=== PATIENT | male | born 1990 | race Two or more races ===

== ENCOUNTER 2024-01-30 14:49 | Outpatient (RCR) | payer MEDICAID, SELFPAY | END 2024-02-18 23:59 | disposition home or self-care (01) | LOC: SCTC 14:49 | PROVIDERS: PCP Family Medicine; Referring Provider Family Medicine; Visit Provider Nurse Practitioner Family | DX: D47.1 Chronic myeloproliferative disease (principal) | CPT/HCPCS: 99212; G0463 ==

== ENCOUNTER → 2024-04-03 | Outpatient (CLI) | payer MEDICAID, SELFPAY ==
--- NOTE | 2024-04-03 08:00 | XR_ITS ---
Examination: MRI pelvis with intravenous contrast TECHNIQUE: Axial sagittal coronal MR pelvis images post intravenous administration 18 cc gadolinium INDICATIONS: Rectal pain with rectal bleeding 7 months Exam date and time: April 03, 2024 0815 hours FINDINGS: Nonobstructive bowel gas pattern No common iliac and external iliac or common femoral lymphadenopathy No dilatation of the rectosigmoid visualized: No discrete colonic mass identified The rectal wall is thickened up to 11 mm No prostatomegaly Urinary bladder intact Homogeneous marrow signal IMPRESSION: Diffuse thickening of the rectal wall, differential would include proctitis, rectal tumor not excluded Recommend direct inspection
== END | disposition home or self-care (01) ==
LOC: SMRI 07:38
PROVIDERS: PCP Nurse Practitioner; Referring Provider Internal Medicine Gastroenterology; Visit Provider Internal Medicine Gastroenterology
DX: R93.3 Abnormal findings on diagnostic imaging of other parts of digestive tract (principal)
CPT/HCPCS: 72196; A9579

== ENCOUNTER 2024-04-09 07:50 | Day surgery (SDC) | payer MEDICAID, SELFPAY ==
[2024-04-08 15:41] VITALS: BMI 25.6
[2024-04-09] VITALS (10 sets, daily range): BP systolic 110–135; BP diastolic 70–87; PULSE 54–67; RESP 12–20; TEMP 36.7; O2SAT 96–99; BMI 22.6
[2024-04-09] MEDS: SODIUM CHLORIDE 0.9% 500 ML 500 ML 20 ML IV (09:10)
[2024-04-09] MEDS: MIDAZOLAM INJ 1 MG/ML VIAL 2 ML (ASD USE ONLY) 2 MG IV (09:16)
[2024-04-09] MEDS: fentaNYL CIT INJ 50 mCg/ML AMP 2ML (ASD USE ONLY) IV (09:16)
[2024-04-09] MEDS: DiphenhydrAMINE INJ 50 MG/ML VIAL 25 MG IV (09:17)
--- NOTE | 2024-04-09 09:40 | SUR.PHASEII ---
PATEINT INTO RECOVERY WITH NO ACUTE DISTRESS NOTED, V/S STABLE, NO COMPLAINTS OF PAIN OR NAUSEA AT THIS TIME. PATIENT REPOSITIONS SELF FOR COMFORT. PATIENT PASSING FLATUS. REPORT RECEIVED FROM LUIS ANTONIO FUCHS.
== END 2024-04-09 10:30 | disposition home or self-care (01) ==
PROVIDERS: PCP Family Medicine; Referring Provider Internal Medicine Gastroenterology; Visit Provider Internal Medicine Gastroenterology
PROC: 0DBE8ZX Excision of Large Intestine, Via Natural or Artificial Opening Endoscopic, Diagnostic (ICD-10-PCS; CPT 45380; principal; 2024-04-09 09:30)
DX: K64.1 Second degree hemorrhoids (principal); K62.89 Other specified diseases of anus and rectum
CPT/HCPCS: 45380; A4649; J1200; J2250; J3010; J7040

== ENCOUNTER 2024-07-06 15:46 | Outpatient (RCR) | payer MEDICAID, SELFPAY ==
--- NOTE | 2024-07-14 09:20 | CTCFLWUP_ITS ---
Patient: SAM GARCIA : 1990 Page 10 of 11 FOLLOW UP NOTE DATE OF SERVICE: 07/06/2024 NAME: SAM GARCIA ACCOUNT: [id number] : 1990 AGE: 34 INTERVAL HISTORY: Patient with eosinophilia with FLIPIL1-PDGFRA gene rearrangement . patient on imatinib and doing well . PREVIOUS NOTE: Sam Garcia is a 34-year-old ENG speaking male without any significant past medical history has been having nasal changes as well as scabs on the back of his calves as well as weight loss since September 2019. He was initially found to have his renal failure in November 2019. 12/08/2019: WBC 38.4, absolute eosinophil count 18,700 cells per deciliter, hemoglobin 10.8, MCV 95, platelets 158,000. 03/01/2020: WBC 34.9, absolute eosinophil count 16,500 cells per deciliter hemoglobin 10.9, platelet count 130,000. 06/13/2020: WBC 33.9, absolute eosinophil count 16,600 cells per deciliter, hemoglobin 9.8, platelets 104,000. 06/13/2020: Bone marrow biopsy and aspiration? 08/04/2020: WBC 84.7, absolute eosinophil count 22.4, absolute neutrophil count 39.6, hemoglobin 9.4, MCV 100, platelets 96,000. 08/10/2020: WBC 62.1, absolute eosinophil count is 19.1, hemoglobin is 9.9, platelets or 81,000. 08/12/2020: Patient started taking imatinib 100 mg p.o. daily. 08/17/2020: WBC 4.1, eosinophil count 0.1, hemoglobin 9.0, MCV 100, platelets 80,000. 08/23/2020: CT scan of the abdomen without contrast? 08/29/2020: CT scan of the chest with IV contrast? 08/31/2020: WBC 1.6, ANC 0.7, eosinophils 0, hemoglobin 9.9, MCV 106, platelets 79,000. 09/01/2020: Patient is advised to hold imatinib. 09/08/2020: WBC 2.5, ANC 1.7, hemoglobin 11.0, platelets 68.1. 09/15/2020: WBC 4.0, ANC 3.0, hemoglobin 12.0, platelets 162,000 09/21/2020: WBC 5.5, ANC 3.2, hemoglobin 13.6, platelets 158,000. 09/22/2020: Patient is started on imatinib 50 mg every other day. 09/29/2020: WBC 5.6, ANC 3.7, eosinophils 0.1, hemoglobin 15.1, platelets 173,000. 11/01/2020: WBC 4.3, ANC 2.6, hemoglobin 14.6, MCV 92, platelets 183,000. Eosinophils 0.1. 11/29/2020: FISH analysis with MPN probes? 12/01/2020: WBC 5.4, ANC 3.7, eosinophil count 0.3, hemoglobin 14.0, MCV 90, platelets 164,000. 02/06/2021: WBC 8.3, eosinophils 1%, hemoglobin 15.3, platelets 184,000. 05/16/2021: WBC 6.5, ANC 4.0, hemoglobin 15.6, MCV 94, platelets 206,000. 09/26/2021: WBC 8.3, ANC 6.2, hemoglobin 15.5, MCV 92, platelets 205,000. 01/29/2022: WBC 6.3, ANC 4.2, eosinophils 0.2, creatinine 0.8, calcium 10.4. 04/13/2022: Hemoglobin 16.9, MCV 93, WBC 6.3, ANC 3.5, absolute eosinophil count 0.2, platelets 215,000. 01/14/2023: WBC 5.7, ANC 3.1, eosinophil count 0.3, hemoglobin 15.2, MCV 90, platelets 179,000 06/18/2023: WBC 7.7, ANC 5.4, his son Christoph count 0.2, hemoglobin 14.5, MCV 92, platelets 158,000 01/23/2024: WBC 7.4, ANC 4.7, eosinophil count 0.3, hemoglobin 15.6, MCV 91, platelets 198,000, labs within normal limits. 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 Patient continues to take imatinib 50 mg p.o. every other day. Patient tolerating it well. CBC and CMP done on 01/23/2024 levels are within normal limits. Patient reports good appetite and energy levels. 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 INTERVAL HISTORY: PREVIOUS NOTE: Sam Garcia is a 34-year-old ENG speaking male without any significant past medical history has been having nasal changes as well as scabs on the back of his calves as well as weight loss since September 2019. He was initially found to have his renal failure in November 2019. 12/08/2019: WBC 38.4, absolute eosinophil count 18,700 cells per deciliter, hemoglobin 10.8, MCV 95, platelets 158,000. 03/01/2020: WBC 34.9, absolute eosinophil count 16,500 cells per deciliter hemoglobin 10.9, platelet count 130,000. 06/13/2020: WBC 33.9, absolute eosinophil count 16,600 cells per deciliter, hemoglobin 9.8, platelets 104,000. 06/13/2020: Bone marrow biopsy and aspiration? 08/04/2020: WBC 84.7, absolute eosinophil count 22.4, absolute neutrophil count 39.6, hemoglobin 9.4, MCV 100, platelets 96,000. 08/10/2020: WBC 62.1, absolute eosinophil count is 19.1, hemoglobin is 9.9, platelets or 81,000. 08/12/2020: Patient started taking imatinib 100 mg p.o. daily. 08/17/2020: WBC 4.1, eosinophil count 0.1, hemoglobin 9.0, MCV 100, platelets 80,000. 08/23/2020: CT scan of the abdomen without contrast? 08/29/2020: CT scan of the chest with IV contrast? 08/31/2020: WBC 1.6, ANC 0.7, eosinophils 0, hemoglobin 9.9, MCV 106, platelets 79,000. 09/01/2020: Patient is advised to hold imatinib. 09/08/2020: WBC 2.5, ANC 1.7, hemoglobin 11.0, platelets 68.1. 09/15/2020: WBC 4.0, ANC 3.0, hemoglobin 12.0, platelets 162,000 09/21/2020: WBC 5.5, ANC 3.2, hemoglobin 13.6, platelets 158,000. 09/22/2020: Patient is started on imatinib 50 mg every other day. 09/29/2020: WBC 5.6, ANC 3.7, eosinophils 0.1, hemoglobin 15.1, platelets 173,000. 11/01/2020: WBC 4.3, ANC 2.6, hemoglobin 14.6, MCV 92, platelets 183,000. Eosinophils 0.1. 11/29/2020: FISH analysis with MPN probes? 12/01/2020: WBC 5.4, ANC 3.7, eosinophil count 0.3, hemoglobin 14.0, MCV 90, platelets 164,000. 02/06/2021: WBC 8.3, eosinophils 1%, hemoglobin 15.3, platelets 184,000. 05/16/2021: WBC 6.5, ANC 4.0, hemoglobin 15.6, MCV 94, platelets 206,000. 09/26/2021: WBC 8.3, ANC 6.2, hemoglobin 15.5, MCV 92, platelets 205,000. 01/29/2022: WBC 6.3, ANC 4.2, eosinophils 0.2, creatinine 0.8, calcium 10.4. 04/13/2022: Hemoglobin 16.9, MCV 93, WBC 6.3, ANC 3.5, absolute eosinophil count 0.2, platelets 215,000. 01/14/2023: WBC 5.7, ANC 3.1, eosinophil count 0.3, hemoglobin 15.2, MCV 90, platelets 179,000 06/18/2023: WBC 7.7, ANC 5.4, his son Christoph count 0.2, hemoglobin 14.5, MCV 92, platelets 158,000 01/23/2024: WBC 7.4, ANC 4.7, eosinophil count 0.3, hemoglobin 15.6, MCV 91, platelets 198,000, labs within normal limits. 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 Unable to tolerate due to severe neutropenia. Currently on imatinib 50 mg p.o. every other day. History of drug abusing behavior. Patient is intermittently using cocaine, Hatch tablets as well as marijuana. Homosexual orientation. DATE OF DIAGNOSIS: 06/13/2020 STAGE/TNM: TREATMENT HISTORY: Care?Plan Start?Date Cycle Day Intent HISTORY OF PRESENT ILLNESS: OTHER MEDICAL HISTORY/CONDITIONS: History of syphilis, received full treatment according to [facility]. FAMILY HISTORY: SOCIAL HISTORY: History of drug abusing behavior. Patient is intermittently using cocaine, Hatch tablets as well as marijuana. Strength was in August 2023. Homosexual orientation. Not taking preexposure prophylaxis medications. MEDICATIONS: 1. doxycycline hyclate - 100 mg 1 Capsule twice Daily 2. ferrous sulfate - 325 mg (65 mg iron) 1 tab Daily 3. imatinib - 100 mg 0.5 tab Every other day 4. Surfak - 1 Daily 5. Zoloft - 25 mg 1 tab Daily Medications Last Reconciled by Diamond Knutson MA on 07/06/2024 ALLERGIES: No Known Drug Allergies REVIEW OF SYSTEMS: A complete 14-point review of systems was performed and is negative except as noted in interval history. PHYSICAL EXAMINATION: VITAL SIGNS: Temperature?98.2, B/P?153/89, Oxygen?Saturation?98% Weight?193?lbs PAIN: 0 - No pain ECOG Performance Status: 0 - Asymptomatic and fully active GENERAL APPEARANCE: Appears well, in no apparent distress, appropriately interactive. HEENT: Normocephalic, no temporal wasting, normal conjunctiva, no scleral icterus, normal hearing, lips without lesions CARDIOVASCULAR: Normal heart sounds. PULMONARY: Normal respiratory effort, no respiratory distress or use of accessory muscles, speaking in full sentences, no tachypnea. EXTREMITIES: No pedal edema SKIN: Normal skin appearance. NEUROLOGIC: Alert and ORIENTED x4. PSHYCHIATRIC: Appropriate affect, mood normal, behavior normal, intact thought and speech. LABORATORY DATA: I have personally reviewed and interpreted each of the patient?s relevant lab tests, abnormal findings are below: Date 01/14/23 06/18/23 ??WHITE?BLOOD?COUNT?(Thou/mm3) 5.7 7.7 ??RED?BLOOD?COUNT?(Miln/mm3) 4.89 4.62 ??HEMOGLOBIN?(gm/dl) 15.2 14.5 ??HEMATOCRIT?(%) 44.0 42.4 ??PLATELET?COUNT?(Thou/mm3) 179 158 ??NEUTROPHILS?%,?AUTO?(%) 54 71 ??LYMPH?%,?AUTO?(%) 35 21 ??NEUTROPHILS,?AUTO?(Thou/mm3) 3.1 5.4 ??GLUCOSE,RANDOM?(mg/dL) 108?H 94 ??BLOOD?UREA?NITROGEN?(mg/dL) 10 12 ??CREATININE?(mg/dL) 0.80 0.80 ??SODIUM?(mmol/L) 143 136 ??POTASSIUM?(mmol/L) 4.3 4.4 ??CHLORIDE?(mmol/L) 108?H 104 ??CrCl?(CandG)?(ml/min) 171.51 170.81 ??AST/SGOT?(Unit/L) 21 23 ??ALT/SGPT?(Unit/L) 14 16 ??ALKALINE?PHOSPHATASE?(Unit/L) 104 85 ??BILIRUBIN,?TOTAL?(mg/dL) 0.4 0.8 ??PROTEIN?TOTAL?(gm/dl) 7.1 7.0 ??ALBUMIN,?SERUM?(gm/dl) 4.7 4.3 ??GLOBULIN?(gm/dl) 2.4 2.7 ??ALBUMIN/GLOBULIN?RATIO 2.0 1.6 ??CALCIUM,?SERUM?(mg/dL) 9.8 9.4 ??CALCIUM?SERUM?(CORRECTED)?(mg/dL) 9.8 9.4 ASSESSMENT/PLAN: 1. 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 Unable to tolerate due to severe neutropenia. Currently on imatinib 50 mg p.o. every other day, tolerating dose. History of drug abusing behavior. Patient is intermittently using cocaine, Hatch tablets as well as marijuana. Last time he used drugs was in August 2023. CT scan of the abdomen in the past showed hepatosplenomegaly. CT scan of the chest did not show any pulmonary lesions. CBC CMP within normal limits 01/23/2024. Continue imatinib 50 mg p.o. every other day. I will see him back in clinic in 4 months with CBC and CMP done prior to the visit. Refer to ID CBC and CMP prior to follow-up appointment ORDERS: Order # Description [id number] Comprehensive Metabolic Panel - 12 + CBC with Auto Diff [id number] RETURN TO CLINIC: BILLING AND COMPLIANCE: I reviewed external records from providers outside my specialty as summarized above. I spent a total of 50 minutes on this patient?s care on the day of their visit excluding time spent related to any billed procedures. This time includes time spent with the patient as well as time spent documenting in the medical record, reviewing patients records and tests, obtaining history, placing orders, communicating with other healthcare professionals, counseling the patient, family or caregiver, and/or care coordination for the diagnoses above. Electronically Signed by: {Object.Sanct_ID*[email or web address]@M}, {Object.Sanct_ID*PnP.Suffix@U} D: {Object.Sanct_Date} T: {Object.Sanct_Time} CC: Adrien?Christina,? PCP: Art Conley Referring: Adrine Greene This document was completed utilizing speech recognition software. Grammatical errors, random word insertions, pronoun errors, and incomplete sentences are an occasional consequence of this system due to software limitations, ambient noise, and hardware issues. Any formal questions or concerns about the content, text or information contained within the body of this dictation should be directly addressed to the provider for clarification.
== END 2024-07-18 23:59 | disposition home or self-care (01) ==
LOC: SCTC 15:46
PROVIDERS: PCP Family Medicine; Referring Provider Internal Medicine Gastroenterology; Visit Provider Internal Medicine Hematology & Oncology
DX: D47.1 Chronic myeloproliferative disease (principal); D72.10 Eosinophilia, unspecified; F14.11 Cocaine abuse, in remission
CPT/HCPCS: 99212; G0463

== ENCOUNTER 2024-07-23 10:17 | Outpatient (AMB) | payer MEDICAID, SELFPAY ==
[2024-07-23 10:34] VITALS: BP 151/83; PULSE 55; RESP 19; TEMP 36.7; O2SAT 98; BMI 26.5
--- NOTE | 2024-07-23 10:34 | GSCOFFNT_ITS ---
Vital Signs - [facility] 07/23/24 10:34 Height 1.85 m Height Method Stated Weight 91.257 kg Weight Measurement Method Standing Scale BMI 26.5 BP 151/83 H Blood Pressure Source Automatic Cuff Blood Pressure Location Left Upper Arm Position Sitting Respiration 19 Pulse 55 L Pulse Source Monitor Temp 98.1 F Temp Source Temporal Artery Scan Pulse Oximetry (%) 98 Oxygen Delivery Method Room Air Med/Allergies Allergies & Medications Allergies No Known Allergies Allergy (Verified 07/23/24 10:34) Medication Reconciliation ferrous sulfate 325 mg (65 mg iron) tablet 325 mg PO QDAY 06/13/20 [History Confirmed 07/23/24] multivitamin 1 tab PO QDAY 06/13/20 [History Confirmed 07/23/24] imatinib 100 mg tablet 100 mg PO .Qother 04/08/24 [History Confirmed 07/23/24] sertraline 50 mg tablet 25 mg PO Q24H 04/08/24 [History Confirmed 07/23/24] imiquimod 5 % topical cream packet 1 applic topical .COMPLEX 16 weeks #24 ea 07/23/24 [Rx] MA Intake Visit Data Collection New Patient or Established: Established Patient (seen at [facility] within 3 years) Seen by Clinical Staff ONLY (RN/MA): No Reason for Visit:: REFERRAL ANOGENITAL WARTS Pain Present Currently: Yes (DISCOMFORT) Pain Location: Unable to identify Pain scale:: 2 PCP or OBGYN visit in last 3 months: Yes Hx Now: No Do You Feel Safe at Home: Yes Authorities Contacted: N/A Smoking Status Smoking Status: Current some day smoker Cessation Counseling Provided: SAM was advised that quitting smoking is the single most important factor to protect the health of themselves and their family. Discussed the benefits of quitting smoking with patient. Encouraged patient to quit smoking and provided Cessation assistance materials and resources. Tobacco Use: Cigarette Years smoked: 17 Are you interested in quitting?: No Immunization / Flu Flu Vaccine in the Last 12 Months: No Flu Vaccine Exclusion Criteria: Refused by Patient Past Medical History Past Medical History NEUROLOGIC: Negative Neurological Disorders or Seizures CARDIAC: Positive Hypertension; Negative Cardiac Disorders or Congestive Heart Failure RESPIRATORY: Negative Chronic Obstructive Pulmonary Disease (COPD) GASTROINTESTINAL: Positive Irritable Bowel; Negative Gastrointestinal Disorders or Hepatitis GENITOURINARY: Negative Genitourinary Disorders or Renal Disease REPRODUCTIVE: Positive Genital Herpes MUSCULOSKELETAL: Positive Degenerative Disk Disease ENDOCRINE: Negative Endocrine Disorders, Diabetes Mellitus Type 1 or Diabetes Mellitus Type 2 HEMATOLOGIC: Positive Blood Disorders (myeloid neoplasm) OTHER HISTORY: Positive Chemotherapy (currently taking chemo po for myeloid neoplasm); Negative Hospitalization, Shingles, Falls, Blood Transfusions, Blood Transfusion Reaction, Anesthesia Reactions, MRSA, Chicken Pox, Measles, Mumps or Cancer Surgical History SURGICAL: Positive Abdominal Surgery; Negative Cardiac Surgery or Endocrine Surgery Social History SMOKING STATUS: Smoking status: Current some day smoker ALCOHOL: Alcohol Intake: Never HOUSING: Housing: House HPI HPI Narrative 34M referred for anal condyloma. Pt states he first noticed pain in the perianal region last August, as well as rectal bleeding for which he underwent colonoscopy 11/2023 and 03/2024. On the colonoscopy done this year pt was noted to have anal condyloma which were confirmed on biopsy. Pt states he continues to have episodes of bleeding and admits he does not drink a lot of water so sometimes d oes need to strain on the toilet. He has not been prescribed any topical treatments as of yet, and states he does not have any lesions external to the anus PMH: Chronic myeloproliferative disease, HPV PSHx: Cholecystectomy Meds: Imatinib, sertraine, PO iron Allergies: NKDA Family hx: father had colon CA age 51 Social hx: smokes cigarettes ROS Review of Systems Systems Reviewed: All systems reviewed, normal except as documented Objective/Exam General General Appearance: alert, cooperative and well groomed Resp Respiratory exam: Absent respiratory distress Results Colonoscopy and pathology reports reviewed Assessment & Plan Diagnosis / Problem List (1) Anal condyloma: Status: Acute Assessment & Plan: 34M with 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 I was able to view these on his endoscopy report so deferred a perianal exam for today. I explained pt that topical imiquimod can be used to treat the lesions and provided instructions. We will follow up in 6 weeks and if the lesions are refractory to maximal medical management will discuss further options then. All questions were answered and pt is agreeable with this plan Office Procedures GNS Level of Care Nursing/Assessment Patient Status: Established Patient Nursing Assessment/Reassesment: Medication Reconciliation, Update PMH in EMR and Vital Signs Coordination of Care: Complex Care and Chronic Disease 1-5, Consent,records obtained, informed consent, Education Simp Pt/Fam, Results/Orders obtained and Staff clarify orders Established Patient Charge Established Patient Point Assignment: 90 Established Patient Point Charge: Level 3 (70-115) Patient Portal Questionaires Social History Living Situation History Housing: House Tobacco History Smoking Status: Current some day smoker Alcohol History Alcohol Intake: Never Domestic Abuse History Do You Feel Safe at Home: Yes Review of Systems Report any current symptoms Only answer those that you have currently: Past Medical History Past Medical History Have you ever been diagnosed with any of the following: Neurological Problems Seizures: No Cardiology Problems Congestive Heart Failure: No Hypertension: Yes Respiratory Problems Chronic Obstructive Pulmonary Disease (COPD): No Stomache/Intestinal Problems Hepatitis: No Irritable Bowel: Yes Genital/Urinary Problems Renal Disease: No Reproductive Problems Genital Herpes: Yes Musculoskeletal Problems Degenerative Disk Disease: Yes Endocrine Problems Diabetes Mellitus Type 1: No Diabetes Mellitus Type 2: No Other Problems Hospitalization: No Shingles: No Falls: No Blood Transfusions: No Blood Transfusion Reaction: No Anesthesia Reactions: No Chemotherapy: Yes (currently taking chemo po for myeloid neoplasm) MRSA: No Chicken Pox: No Measles: No Mumps: No Cancer: No
== END 2024-07-23 11:02 | disposition home or self-care (01) ==
PROVIDERS: PCP Family Medicine; Referring Provider Family Medicine; Supervising Provider Surgery; Visit Provider Surgery
DX: A63.0 Anogenital (venereal) warts (principal)
CPT/HCPCS: 99213; G0463

== ENCOUNTER 2024-09-14 13:27 | Outpatient (AMB) | payer MEDICAID, SELFPAY ==
--- NOTE | 2024-09-14 13:34 | GSCOFFNT_ITS ---
[facility] - [facility] 09/14/24 13:36 Height 1.85 m Height Method Measured Weight 86.296 kg Weight Measurement Method Standing Scale BMI 25.2 BP 143/71 H Blood Pressure Source Automatic Cuff Blood Pressure Location Right Upper Arm Position Sitting Respiration 18 Pulse 70 Pulse Source Monitor Temp 98.5 F Temp Source Temporal Artery Scan Pulse Oximetry (%) 96 Oxygen Delivery Method Room Air Med/Allergies Allergies & Medications Allergies No Known Allergies Allergy (Verified 09/14/24 13:37) Medication Reconciliation ferrous sulfate 325 mg (65 mg iron) tablet 325 mg PO QDAY 06/13/20 [History Confirmed 09/14/24] multivitamin 1 tab PO QDAY 06/13/20 [History Confirmed 09/14/24] imatinib 100 mg tablet 100 mg PO .Qother 04/08/24 [History Confirmed 09/14/24] sertraline 50 mg tablet 25 mg PO Q24H 04/08/24 [History Confirmed 09/14/24] imiquimod 5 % topical cream packet 1 applic topical .COMPLEX 16 weeks #24 ea 07/23/24 [Rx Confirmed 09/14/24] MA Intake Visit Data Collection New Patient or Established: Established Patient (seen at [facility] within 3 years) Seen by Clinical Staff ONLY (RN/MA): No Reason for Visit:: ANOGENITAL WARTS Pain Present Currently: No Pain scale:: 0 Pain Scale Used: Rodriguez-Victor/Numerical Coper Hand Required: No PCP or OBGYN visit in last 3 months: Yes Hx Now: No Do You Feel Safe at Home: Yes Authorities Contacted: N/A Smoking Status Smoking Status: Current some day smoker Cessation Counseling Provided: SAM was advised that quitting smoking is the single most important factor to protect the health of themselves and their family. Discussed the benefits of quitting smoking with patient. Encouraged patient to quit smoking and provided Cessation assistance materials and resources. Tobacco Use: Nicotine Years smoked: 1 Are you interested in quitting?: No Immunization / Flu Flu Vaccine in the Last 12 Months: No Flu Vaccine Exclusion Criteria: No Exclusion Criteria Past Medical History Past Medical History NEUROLOGIC: Negative Neurological Disorders or Seizures CARDIAC: Positive Hypertension; Negative Cardiac Disorders or Congestive Heart Failure RESPIRATORY: Negative Chronic Obstructive Pulmonary Disease (COPD) GASTROINTESTINAL: Positive Irritable Bowel; Negative Gastrointestinal Disorders or Hepatitis GENITOURINARY: Negative Genitourinary Disorders or Renal Disease REPRODUCTIVE: Positive Genital Herpes MUSCULOSKELETAL: Positive Degenerative Disk Disease ENDOCRINE: Negative Endocrine Disorders, Diabetes Mellitus Type 1 or Diabetes Mellitus Type 2 HEMATOLOGIC: Positive Blood Disorders (myeloid neoplasm) OTHER HISTORY: Positive Chemotherapy (currently taking chemo po for myeloid neoplasm); Negative Hospitalization, Shingles, Falls, Blood Transfusions, Blood Transfusion Reaction, Anesthesia Reactions, MRSA, Chicken Pox, Measles, Mumps or Cancer Surgical History SURGICAL: Positive Abdominal Surgery; Negative Cardiac Surgery or Endocrine Surgery Social History SMOKING STATUS: Smoking status: Current some day smoker ALCOHOL: Alcohol Intake: Never HOUSING: Housing: House HPI HPI Narrative 34M referred for anal condyloma here for planned follow-up. Patient reports that since last visit he has had little to no bleeding, he has been using the imiquimod I prescribed but he is also working hard to improve his bowel movements so that he has much less straining. He feels that it is much easier to go to the bathroom and overall he has no complaints ROS Review of Systems Systems Reviewed: All systems reviewed, normal except as documented Objective/Exam General General Appearance: alert, cooperative and well groomed Resp Respiratory exam: Absent respiratory distress Assessment & Plan Diagnosis / Problem List (1) Anal condyloma: Status: Acute Assessment & Plan: 34M referred for anal condyloma, seen on colonoscopy and associated with bleeding, which is improved symptomatically with an improvement in bowel habits as well as imiquimod 3 times weekly. Advised patient that the imiquimod should be used for 16 weeks max and he expressed understanding. Will follow-up in 6 weeks and at that time I can perform an anoscopy to assess for healing of the condyloma Office Procedures GNS Level of Care Nursing/Assessment Patient Status: Established Patient Nursing Assessment/Reassesment: Medication Reconciliation, Update PMH in EMR and Vital Signs Coordination of Care: Complex Care and Chronic Disease 1-5, Consent,records obtained, informed consent, Education Simp Pt/Fam, Results/Orders obtained and Staff clarify orders Established Patient Charge Established Patient Point Assignment: 90 Established Patient Point Charge: EP Level 3 (80-115) Patient Portal Questionaires Social History Living Situation History Housing: House Tobacco History Smoking Status: Current some day smoker Alcohol History Alcohol Intake: Never Domestic Abuse History Do You Feel Safe at Home: Yes Review of Systems Report any current symptoms Only answer those that you have currently: Past Medical History Past Medical History Have you ever been diagnosed with any of the following: Neurological Problems Seizures: No Cardiology Problems Congestive Heart Failure: No Hypertension: Yes Respiratory Problems Chronic Obstructive Pulmonary Disease (COPD): No Stomache/Intestinal Problems Hepatitis: No Irritable Bowel: Yes Genital/Urinary Problems Renal Disease: No Reproductive Problems Genital Herpes: Yes Musculoskeletal Problems Degenerative Disk Disease: Yes Endocrine Problems Diabetes Mellitus Type 1: No Diabetes Mellitus Type 2: No Other Problems Hospitalization: No Shingles: No Falls: No Blood Transfusions: No Blood Transfusion Reaction: No Anesthesia Reactions: No Chemotherapy: Yes (currently taking chemo po for myeloid neoplasm) MRSA: No Chicken Pox: No Measles: No Mumps: No Cancer: No
[2024-09-14 13:36] VITALS: BP 143/71; PULSE 70; RESP 18; TEMP 36.9; O2SAT 96; BMI 25.2
== END 2024-09-14 13:56 | disposition home or self-care (01) ==
PROVIDERS: PCP Family Medicine; Referring Provider Family Medicine; Supervising Provider Surgery; Visit Provider Surgery
DX: A63.0 Anogenital (venereal) warts (principal)
CPT/HCPCS: 99213; G0463

== ENCOUNTER 2024-10-06 11:17 | Outpatient (RCR) | payer MEDICAID, SELFPAY ==
--- NOTE | 2024-10-12 00:26 | CTCFLWUP_ITS ---
Patient: SAM GARCIA : 1990 Page 10 of 10 FOLLOW UP NOTE DATE OF SERVICE: 10/06/2024 NAME: SAM GARCIA ACCOUNT: [id number] : 1990 AGE: 34 INTERVAL HISTORY: Patient with eosinophilia with FLIPIL1-PDGFRA gene rearrangement . patient on imatinib and doing well . PREVIOUS NOTE: Sam Garcia is a 34-year-old ENG speaking male without any significant past medical history has been having nasal changes as well as scabs on the back of his calves as well as weight loss since September 2019. He was initially found to have his renal failure in November 2019. 12/08/2019: WBC 38.4, absolute eosinophil count 18,700 cells per deciliter, hemoglobin 10.8, MCV 95, platelets 158,000. 03/01/2020: WBC 34.9, absolute eosinophil count 16,500 cells per deciliter hemoglobin 10.9, platelet count 130,000. 06/13/2020: WBC 33.9, absolute eosinophil count 16,600 cells per deciliter, hemoglobin 9.8, platelets 104,000. 06/13/2020: Bone marrow biopsy and aspiration? 08/04/2020: WBC 84.7, absolute eosinophil count 22.4, absolute neutrophil count 39.6, hemoglobin 9.4, MCV 100, platelets 96,000. 08/10/2020: WBC 62.1, absolute eosinophil count is 19.1, hemoglobin is 9.9, platelets or 81,000. 08/12/2020: Patient started taking imatinib 100 mg p.o. daily. 08/17/2020: WBC 4.1, eosinophil count 0.1, hemoglobin 9.0, MCV 100, platelets 80,000. 08/23/2020: CT scan of the abdomen without contrast? 08/29/2020: CT scan of the chest with IV contrast? 08/31/2020: WBC 1.6, ANC 0.7, eosinophils 0, hemoglobin 9.9, MCV 106, platelets 79,000. 09/01/2020: Patient is advised to hold imatinib. 09/08/2020: WBC 2.5, ANC 1.7, hemoglobin 11.0, platelets 68.1. 09/15/2020: WBC 4.0, ANC 3.0, hemoglobin 12.0, platelets 162,000 09/21/2020: WBC 5.5, ANC 3.2, hemoglobin 13.6, platelets 158,000. 09/22/2020: Patient is started on imatinib 50 mg every other day. 09/29/2020: WBC 5.6, ANC 3.7, eosinophils 0.1, hemoglobin 15.1, platelets 173,000. 11/01/2020: WBC 4.3, ANC 2.6, hemoglobin 14.6, MCV 92, platelets 183,000. Eosinophils 0.1. 11/29/2020: FISH analysis with MPN probes? 12/01/2020: WBC 5.4, ANC 3.7, eosinophil count 0.3, hemoglobin 14.0, MCV 90, platelets 164,000. 02/06/2021: WBC 8.3, eosinophils 1%, hemoglobin 15.3, platelets 184,000. 05/16/2021: WBC 6.5, ANC 4.0, hemoglobin 15.6, MCV 94, platelets 206,000. 09/26/2021: WBC 8.3, ANC 6.2, hemoglobin 15.5, MCV 92, platelets 205,000. 01/29/2022: WBC 6.3, ANC 4.2, eosinophils 0.2, creatinine 0.8, calcium 10.4. 04/13/2022: Hemoglobin 16.9, MCV 93, WBC 6.3, ANC 3.5, absolute eosinophil count 0.2, platelets 215,000. 01/14/2023: WBC 5.7, ANC 3.1, eosinophil count 0.3, hemoglobin 15.2, MCV 90, platelets 179,000 06/18/2023: WBC 7.7, ANC 5.4, his son Christoph count 0.2, hemoglobin 14.5, MCV 92, platelets 158,000 01/23/2024: WBC 7.4, ANC 4.7, eosinophil count 0.3, hemoglobin 15.6, MCV 91, platelets 198,000, labs within normal limits. 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 Patient continues to take imatinib 50 mg p.o. every other day. Patient tolerating it well. CBC and CMP done on 01/23/2024 levels are within normal limits. Patient reports good appetite and energy levels. 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 INTERVAL HISTORY: PREVIOUS NOTE: Sam Garcia is a 34-year-old ENG speaking male without any significant past medical history has been having nasal changes as well as scabs on the back of his calves as well as weight loss since September 2019. He was initially found to have his renal failure in November 2019. 12/08/2019: WBC 38.4, absolute eosinophil count 18,700 cells per deciliter, hemoglobin 10.8, MCV 95, platelets 158,000. 03/01/2020: WBC 34.9, absolute eosinophil count 16,500 cells per deciliter hemoglobin 10.9, platelet count 130,000. 06/13/2020: WBC 33.9, absolute eosinophil count 16,600 cells per deciliter, hemoglobin 9.8, platelets 104,000. 06/13/2020: Bone marrow biopsy and aspiration? 08/04/2020: WBC 84.7, absolute eosinophil count 22.4, absolute neutrophil count 39.6, hemoglobin 9.4, MCV 100, platelets 96,000. 08/10/2020: WBC 62.1, absolute eosinophil count is 19.1, hemoglobin is 9.9, platelets or 81,000. 08/12/2020: Patient started taking imatinib 100 mg p.o. daily. 08/17/2020: WBC 4.1, eosinophil count 0.1, hemoglobin 9.0, MCV 100, platelets 80,000. 08/23/2020: CT scan of the abdomen without contrast? 08/29/2020: CT scan of the chest with IV contrast? 08/31/2020: WBC 1.6, ANC 0.7, eosinophils 0, hemoglobin 9.9, MCV 106, platelets 79,000. 09/01/2020: Patient is advised to hold imatinib. 09/08/2020: WBC 2.5, ANC 1.7, hemoglobin 11.0, platelets 68.1. 09/15/2020: WBC 4.0, ANC 3.0, hemoglobin 12.0, platelets 162,000 09/21/2020: WBC 5.5, ANC 3.2, hemoglobin 13.6, platelets 158,000. 09/22/2020: Patient is started on imatinib 50 mg every other day. 09/29/2020: WBC 5.6, ANC 3.7, eosinophils 0.1, hemoglobin 15.1, platelets 173,000. 11/01/2020: WBC 4.3, ANC 2.6, hemoglobin 14.6, MCV 92, platelets 183,000. Eosinophils 0.1. 11/29/2020: FISH analysis with MPN probes? 12/01/2020: WBC 5.4, ANC 3.7, eosinophil count 0.3, hemoglobin 14.0, MCV 90, platelets 164,000. 02/06/2021: WBC 8.3, eosinophils 1%, hemoglobin 15.3, platelets 184,000. 05/16/2021: WBC 6.5, ANC 4.0, hemoglobin 15.6, MCV 94, platelets 206,000. 09/26/2021: WBC 8.3, ANC 6.2, hemoglobin 15.5, MCV 92, platelets 205,000. 01/29/2022: WBC 6.3, ANC 4.2, eosinophils 0.2, creatinine 0.8, calcium 10.4. 04/13/2022: Hemoglobin 16.9, MCV 93, WBC 6.3, ANC 3.5, absolute eosinophil count 0.2, platelets 215,000. 01/14/2023: WBC 5.7, ANC 3.1, eosinophil count 0.3, hemoglobin 15.2, MCV 90, platelets 179,000 06/18/2023: WBC 7.7, ANC 5.4, his son Christoph count 0.2, hemoglobin 14.5, MCV 92, platelets 158,000 01/23/2024: WBC 7.4, ANC 4.7, eosinophil count 0.3, hemoglobin 15.6, MCV 91, platelets 198,000, labs within normal limits. 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 Unable to tolerate due to severe neutropenia. Currently on imatinib 50 mg p.o. every other day. History of drug abusing behavior. Patient is intermittently using cocaine, [place] tablets as well as marijuana. Homosexual orientation. DATE OF DIAGNOSIS: 06/13/2020 STAGE/TNM: TREATMENT HISTORY: Care?Plan Start?Date Cycle Day Intent HISTORY OF PRESENT ILLNESS: OTHER MEDICAL HISTORY/CONDITIONS: History of syphilis, received full treatment according to Mr. Garcia. FAMILY HISTORY: SOCIAL HISTORY: History of drug abusing behavior. Patient is intermittently using cocaine, [place] tablets as well as marijuana. Strength was in August 2023. Homosexual orientation. Not taking preexposure prophylaxis medications. MEDICATIONS: 1. ferrous sulfate - 325 mg (65 mg iron) 1 tab Daily 2. imatinib - 100 mg 0.5 tab Every other day 3. imiquimod - 5 % As directed 4. Surfak - 1 Daily 5. Zoloft - 25 mg 1 tab Daily Medications Last Reconciled by Kaya Small MA on 10/06/2024 ALLERGIES: No Known Drug Allergies REVIEW OF SYSTEMS: A complete 14-point review of systems was performed and is negative except as noted in interval history. PHYSICAL EXAMINATION: VITAL SIGNS: Temperature?99.5, B/P?143/86, Oxygen?Saturation?98% Weight?190?lbs PAIN: None ECOG Performance Status: None GENERAL APPEARANCE: Appears well, in no apparent distress, appropriately interactive. HEENT: Normocephalic, no temporal wasting, normal conjunctiva, no scleral icterus, normal hearing, lips without lesions CARDIOVASCULAR: Normal heart sounds. PULMONARY: Normal respiratory effort, no respiratory distress or use of accessory muscles, speaking in full sentences, no tachypnea. EXTREMITIES: No pedal edema SKIN: Normal skin appearance. NEUROLOGIC: Alert and ORIENTED x4. PSHYCHIATRIC: Appropriate affect, mood normal, behavior normal, intact thought and speech. LABORATORY DATA: I have personally reviewed and interpreted each of the patient?s relevant lab tests, abnormal findings are below: Date 01/14/23 06/18/23 ??WHITE?BLOOD?COUNT?(Thou/mm3) 5.7 7.7 ??RED?BLOOD?COUNT?(Miln/mm3) 4.89 4.62 ??HEMOGLOBIN?(gm/dl) 15.2 14.5 ??HEMATOCRIT?(%) 44.0 42.4 ??PLATELET?COUNT?(Thou/mm3) 179 158 ??NEUTROPHILS?%,?AUTO?(%) 54 71 ??LYMPH?%,?AUTO?(%) 35 21 ??NEUTROPHILS,?AUTO?(Thou/mm3) 3.1 5.4 ??GLUCOSE,RANDOM?(mg/dL) 108?H 94 ??BLOOD?UREA?NITROGEN?(mg/dL) 10 12 ??CREATININE?(mg/dL) 0.80 0.80 ??SODIUM?(mmol/L) 143 136 ??POTASSIUM?(mmol/L) 4.3 4.4 ??CHLORIDE?(mmol/L) 108?H 104 ??CrCl?(CandG)?(ml/min) 171.51 170.81 ??AST/SGOT?(Unit/L) 21 23 ??ALT/SGPT?(Unit/L) 14 16 ??ALKALINE?PHOSPHATASE?(Unit/L) 104 85 ??BILIRUBIN,?TOTAL?(mg/dL) 0.4 0.8 ??PROTEIN?TOTAL?(gm/dl) 7.1 7.0 ??ALBUMIN,?SERUM?(gm/dl) 4.7 4.3 ??GLOBULIN?(gm/dl) 2.4 2.7 ??ALBUMIN/GLOBULIN?RATIO 2.0 1.6 ??CALCIUM,?SERUM?(mg/dL) 9.8 9.4 ??CALCIUM?SERUM?(CORRECTED)?(mg/dL) 9.8 9.4 ASSESSMENT/PLAN: 1. 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 Unable to tolerate due to severe neutropenia. Currently on imatinib 50 mg p.o. every other day, tolerating dose. History of drug abusing behavior. Patient is intermittently using cocaine, [place] tablets as well as marijuana. Last time he used drugs was in August 2023. CT scan of the abdomen in the past showed hepatosplenomegaly. CT scan of the chest did not show any pulmonary lesions. CBC CMP within normal limits 01/23/2024. Continue imatinib 50 mg p.o. every other day. I will see him back in clinic in 4 months with CBC and CMP done prior to the visit. Refer to ID Refer to shania trotter at [facility] for expert opinion and management . CBC and CMP prior to follow-up appointment ORDERS: Order # Description [id number] Comprehensive Metabolic Panel - 12 + CBC with Auto Diff + Uric Acid, Serum [id number] Lactate Dehydrogenase (LDH) [id number] Ferritin + Vitamin B-12 + Folic Acid; Serum + Iron Panel [id number] Assay Of Haptoglobin Quant [id number] Follow Up [id number] Scan + Abdomen and Pelvis + Chest + With W/O Contrast [id number] RETURN TO CLINIC: I reviewed the diagnosis, prognosis, and recommended treatment/procedure options with the patient (and/or their legal franchise sales representative), including the potential benefits, risks, side effects and alternative therapies. We also discussed the option of no treatment and the possibility of clinical trial participation, if applicable. All questions were addressed, and they demonstrated understanding. They provided informed consent to proceed with the proposed plan of care. BILLING AND COMPLIANCE: I reviewed external records from providers outside my specialty as summarized above. I spent a total of 50 minutes on this patient?s care on the day of their visit excluding time spent related to any billed procedures. This time includes time spent with the patient as well as time spent documenting in the medical record, reviewing patients records and tests, obtaining history, placing orders, communicating with other healthcare professionals, counseling the patient, family or caregiver, and/or care coordination for the diagnoses above. Electronically Signed by: {Object.Sanct_ID*[email or web address]@M}, {Object.Sanct_ID*PnP.Suffix@U} D: {Object.Sanct_Date} T: {Object.Sanct_Time} CC: Adrien?Iraj?Tsering,? PCP: Mark Downing Referring: Mark Downing This document was completed utilizing speech recognition software. Grammatical errors, random word insertions, pronoun errors, and incomplete sentences are an occasional consequence of this system due to software limitations, ambient noise, and hardware issues. Any formal questions or concerns about the content, text or information contained within the body of this dictation should be directly addressed to the provider for clarification.
== END 2024-10-18 23:59 | disposition home or self-care (01) ==
LOC: SCTC 11:17
PROVIDERS: PCP Nurse Practitioner Family; Referring Provider Internal Medicine Hematology & Oncology; Visit Provider Internal Medicine Hematology & Oncology
DX: D47.1 Chronic myeloproliferative disease (principal); D72.10 Eosinophilia, unspecified; R16.2 Hepatomegaly with splenomegaly, not elsewhere classified; F14.10 Cocaine abuse, uncomplicated; F12.10 Cannabis abuse, uncomplicated; F11.10 Opioid abuse, uncomplicated
CPT/HCPCS: 99212; G0463

== ENCOUNTER 2024-10-29 11:47 | Outpatient (AMB) | payer MEDICAID, SELFPAY ==
[2024-10-29 11:58] VITALS: BP 131/85; PULSE 77; RESP 18; TEMP 36.8; O2SAT 95; BMI 26.3
--- NOTE | 2024-10-29 11:58 | GSCOFFNT_ITS ---
V[facility] Sign[facility] - [facility] 10/29/24 11:58 Height 1.85 m Height Method Measured Weight 90.01 kg Weight Measurement Method Standing Scale BMI 26.3 BP 131/85 H Blood Pressure Source Automatic Cuff Blood Pressure Location Left Upper Arm Position Sitting Respiration 18 Pulse 77 Pulse Source Monitor Temp 98.2 F Temp Source Temporal Artery Scan Pulse Oximetry (%) 95 Oxygen Delivery Method Room Air Med/Allergies Allergies & Medications Allergies No Known Allergies Allergy (Verified 10/29/24 11:59) Medication Reconciliation ferrous sulfate 325 mg (65 mg iron) tablet 325 mg PO QDAY 06/13/20 [History Confirmed 10/29/24] multivitamin 1 tab PO QDAY 06/13/20 [History Confirmed 10/29/24] imatinib 100 mg tablet 100 mg PO .Qother 04/08/24 [History Confirmed 10/29/24] sertraline 50 mg tablet 25 mg PO Q24H 04/08/24 [History Confirmed 10/29/24] imiquimod 5 % topical cream packet 1 applic topical .COMPLEX 16 weeks #24 ea 07/23/24 [Rx Confirmed 10/29/24] MA Intake Visit Data Collection New Patient or Established: Established Patient (seen at [facility] within 3 years) Seen by Clinical Staff ONLY (RN/MA): No Reason for Visit:: F/U ANOGENITAL WARTS Pain Present Currently: No Pain Scale Used: Rodriguez-Victor/Numerical Administrative Processor Required: No PCP or OBGYN visit in last 3 months: Yes Hx Now: No Do You Feel Safe at Home: Yes Authorities Contacted: N/A Smoking Status Smoking Status: Current some day smoker Cessation Counseling Provided: SAM was advised that quitting smoking is the single most important factor to protect the health of themselves and their family. Discussed the benefits of quitting smoking with patient. Encouraged patient to quit smoking and provided Cessation assistance materials and resources. Tobacco Use: Cigar (MARIJUANA) Years smoked: 1 Are you interested in quitting?: No Would you like additional Smoking Cessation Counseling?: No Immunization / Flu Flu Vaccine in the Last 12 Months: No Flu Vaccine Exclusion Criteria: No Exclusion Criteria Past Medical History Past Medical History NEUROLOGIC: Negative Neurological Disorders or Seizures CARDIAC: Positive Hypertension; Negative Cardiac Disorders or Congestive Heart Failure RESPIRATORY: Negative Chronic Obstructive Pulmonary Disease (COPD) GASTROINTESTINAL: Positive Irritable Bowel; Negative Gastrointestinal Disorders or Hepatitis GENITOURINARY: Negative Genitourinary Disorders or Renal Disease REPRODUCTIVE: Positive Genital Herpes MUSCULOSKELETAL: Positive Degenerative Disk Disease ENDOCRINE: Negative Endocrine Disorders, Diabetes Mellitus Type 1 or Diabetes Mellitus Type 2 HEMATOLOGIC: Positive Blood Disorders (myeloid neoplasm) OTHER HISTORY: Positive Chemotherapy (currently taking chemo po for myeloid neoplasm); Negative Hospitalization, Shingles, Falls, Blood Transfusions, Blood Transfusion Reaction, Anesthesia Reactions, MRSA, Chicken Pox, Measles, Mumps or Cancer Surgical History SURGICAL: Positive Abdominal Surgery; Negative Cardiac Surgery or Endocrine Surgery Social History SMOKING STATUS: Smoking status: Current some day smoker ALCOHOL: Alcohol Intake: Never HOUSING: Housing: House HPI HPI Narrative 34M referred for anal condyloma here for follow up. Pt states he had been doing well until a couple days ago, he had a larger than usual BM and noticed bleeding which he felt was coming from the left side of the anal canal. He denies any pain, continues to use imiquimod as prescribed and otherwise has not had any straining or diarrhea ROS Review of Systems Systems Reviewed: All systems reviewed, normal except as documented Objective/Exam General General Appearance: alert, cooperative and well groomed Resp Respiratory exam: Absent respiratory distress Rectal Rectal exam: Present normal inspection and other (normal EFRA, on anoscopy there are small papillae and left sided internal hemorrhoid) Assessment & Plan Diagnosis / Problem List (1) Anal condyloma: Status: Acute Assessment & Plan: 34M referred for anal condyloma here for follow up. As he is having bleeding refractory to imiquimod I explained that I can offer proctoscopy/EUA to excise the condyloma. I did also offer the possibility of THD but pt prefers to hold off, even if it seems that the hemorrhoids are the source of bleeding. All questions were answered and pt is agreeable to proceeding Plan: Will schedule for proctoscopy, exam under anesthesia in [place] [facility] the day before procedure, no prep otherwise needed Office Procedures GNS Level of Care Nursing/Assessment Patient Status: Established Patient Nursing Assessment/Reassesment: Medication Reconciliation, Orthostatic Vitals, Update PMH in EMR and Vital Signs Coordination of Care: Complex Care and Chronic Disease 1-5, Education Complex Pt/Fam, Consent,records obtained, informed consent, Results/Orders obtained and Staff clarify orders Established Patient Charge Established Patient Point Assignment: 105 Established Patient Point Charge: EP Level 3 (80-115) Patient Portal Questionaires Social History Living Situation History Housing: House Tobacco History Smoking Status: Current some day smoker Alcohol History Alcohol Intake: Never Domestic Abuse History Do You Feel Safe at Home: Yes Review of Systems Report any current symptoms Only answer those that you have currently: Past Medical History Past Medical History Have you ever been diagnosed with any of the following: Neurological Problems Seizures: No Cardiology Problems Congestive Heart Failure: No Hypertension: Yes Respiratory Problems Chronic Obstructive Pulmonary Disease (COPD): No Stomache/Intestinal Problems Hepatitis: No Irritable Bowel: Yes Genital/Urinary Problems Renal Disease: No Reproductive Problems Genital Herpes: Yes Musculoskeletal Problems Degenerative Disk Disease: Yes Endocrine Problems Diabetes Mellitus Type 1: No Diabetes Mellitus Type 2: No Other Problems Hospitalization: No Shingles: No Falls: No Blood Transfusions: No Blood Transfusion Reaction: No Anesthesia Reactions: No Chemotherapy: Yes (currently taking chemo po for myeloid neoplasm) MRSA: No Chicken Pox: No Measles: No Mumps: No Cancer: No
== END 2024-10-29 12:14 | disposition home or self-care (01) ==
LOC: HODSRG 11:47
PROVIDERS: PCP Family Medicine; Referring Provider Family Medicine; Supervising Provider Surgery; Visit Provider Surgery
DX: A63.0 Anogenital (venereal) warts (principal); I10 Essential (primary) hypertension
CPT/HCPCS: 99213; G0463

== ENCOUNTER → 2024-11-17 | Outpatient (CLI) | payer MEDICAID, SELFPAY ==
--- NOTE | 2024-11-17 09:30 | XR_ITS ---
Examination: CT chest with intravenous contrast CT abdomen with intravenous contrast CT pelvis with intravenous contrast CTA chest without intravenous contrast CT abdomen without intravenous contrast CT pelvis without intravenous contrast 2-D coronal and sagittal reconstructions Time of exam: November 17, 2024, 0957 hours, comparison MRI pelvis April 03, 2024, CT abdomen pelvis February 15, 2022 INDICATIONS: Diagnosis myeloproliferative disease, rectal discomfort with bowel movements CTDI: vol (mGy) : 24.5 DLP: (mGycm): 1484 Technique: Multiple axial images of the chest, abdomen and pelvis with intravenous contrast, 3.0 mm slice thickness. Images obtained post intravenous injection Isovue 370 60 cc. 2-D sagittal and coronal reconstructions. Low dose protocols were performed. One or more of the following dose reduction techniques were used; automated exposure control, adjustment of the mA and/or KV according to patient size, use of iterative reconstruction technique. Findings: No thoracic aortic aneurysm dilatation. No pulmonary artery filling defects on this non-CTA study No paratracheal tracheobronchial or bronchopulmonary adenopathy No pneumonia or pulmonary edema or pleural disease 2 mm pulmonary nodule right lower lobe not seen on the February 15, 2022 exam No visualized liver or splenic lesions Absent gallbladder No pancreatic or adrenal mass No abdominal or pelvic lymphadenopathy No renal or ureteral calculi, no hydronephrosis Aorta normal size. Normal appendix No diverticulitis Rectal wall axial image 315 is minimally thickened No prostatomegaly Contracted urinary bladder Adequate bone density Mild diffuse narrowing thoracic and lumbar disc spaces No vertebral body fractures Manubrium body of the sternum intact as well as ribs Hips intact Stable sclerosis with trabecular thickening left superior pubic ramus compared to CT pelvis February 15, 2022, likely old fracture IMPRESSION: 2 mm pulmonary nodule right lower lobe, recommend continued 6 month follow-up CT chest without contrast No mediastinal lymphadenopathy No pneumonia, pulmonary edema or pleural disease No abdominal or pelvic lymphadenopathy Rectal wall is minimally thickened, consider proctitis, clinical correlation advised
== END | disposition home or self-care (01) ==
LOC: SCAT 09:24
PROVIDERS: PCP Family Medicine; Referring Provider Internal Medicine Hematology & Oncology; Visit Provider Internal Medicine Hematology & Oncology
DX: R91.1 Solitary pulmonary nodule (principal); D47.1 Chronic myeloproliferative disease
CPT/HCPCS: 71270; 74178; A4649; J2704; J3010; J3490; Q9967

== ENCOUNTER 2024-11-18 07:55 | Day surgery (SDC) | payer MEDICAID, SELFPAY ==
[2024-11-16 07:23] VITALS: BMI 25.7
[2024-11-16 08:37] LABS: Anion Gap 5 (7-16); BUN/Creatinine Ratio 10 Ratio (12-20); Blood Urea Nitrogen 9 mg/dL (9-23); Calcium 9.5 mg/dL (8.3-10.6); Carbon Dioxide 29.8 mMol/L (20.0-31.0); Chloride 110 mMol/L (98-107); Creatinine (Component) 0.9 mg/dL (0.6-1.3); Estimated Creatinine Clearance 133.2 mL/min (>60); Glucose 95 mg/dL (74-106); Osmolality,Calculated 287 (275-295); Potassium 3.9 mMol/L (3.4-5.1); Sodium 145 mMol/L (136-145); eGFR > 60 See Note
[2024-11-16 08:39] LABS: Basophils # (Auto) 0.0 Thou/mm3 (0.0-0.2); Basophils % (Auto) 0 % (0-2.5); Eosinophils # (Auto) 0.4 Thou/mm3 (0.0-0.5); Eosinophils % (Auto) 4 % (0-10); Hematocrit 42.0 % (41.0-53.0); Hemoglobin 14.3 g/dL (13.5-16.0); Immature Granulocytes Auto 0.03 Thou/mm3 (0.00-0.00); Lymphocytes # (Auto) 2.3 Thou/mm3 (1.0-4.8); Lymphocytes % (Auto) 26 % (10-50); Mean Corpuscular HGB Conc 34.0 g/dl (31.0-37.0); Mean Corpuscular Hemoglobin 31.6 pg (25.0-35.0); Mean Corpuscular Volume 93 fL (80-100); Monocytes # (Auto) 0.6 Thou/mm3 (0.0-0.8); Monocytes % (Auto) 7 % (0-12); Neutrophils # (Auto) 5.5 Thou/mm3 (1.8-7.7); Neutrophils % (Auto) 63 % (37-80); Nucleated Red Blood Cell # 0.00 Thou/mm3 (0.00-0.00); Nucleated Red Blood Cell % 0 /100 WBC (0); Platelet Count 180 Thou/mm3 (140-440); RDW Standard Deviation 46.5 fL (35.1-43.9); Red Blood Count 4.53 Miln/mm3 (4.50-5.90); White Blood Count 8.7 Thou/mm3 (3.8-10.6)
[2024-11-16 08:47] LABS: INR 1.1 (0.9-1.3); Partial Thromboplastin Time 29.3 Seconds (22.0-36.0); Prothrombin Time 11.2 Seconds (9.0-12.2)
[2024-11-18] VITALS (8 sets, daily range): BP systolic 97–138; BP diastolic 53–98; PULSE 43–63; RESP 12–20; TEMP 36.3–36.7; O2SAT 95–98; BMI 26.8
--- NOTE | 2024-11-18 11:16 | ESOP_ITS ---
Date of Procedure 11/18/24 Pre Op Diagnosis Anal warts Post Op Diagnosis Same Procedure Examination under anesthesia, proctoscopy, excision and cauterization of anal warts Findings Multiple small pedunculated anal warts Procedure Description After discussion of risks and benefits, patient was brought to the operating room, SCDs were placed and MAC anesthesia was induced. He was placed in lithotomy position with proper padding and was prepped and draped in the usual sterile fashion. After timeout first a EFRA was performed which was notable for small warts in the anal canal. The colonoscope was then introduced into the anus and the anal warts were identified. The scope was then removed and I then changed into a sterile gown and gloves. A lubricated Lyon retractor was placed into the anus and several small anal warts were excised at the left and right posterior anus, midline anus, as well as the left anterior anus. There were a couple of warts which were so small I instead opted to cauterize them. After these were all excised the area was then thoroughly expected for further lesions which were not identified and hemostasis was achieved with electrocautery. Left and right pudendal nerve blocks were performed as well as a local block for a total of 30 cc of half percent Marcaine. Patient was returned to supine posit ion and extubated without complication. He was brought to PACU in stable condition Pathology / specimen Other (Posterior anal wart, left anterior anal wart x 2, midline posterior anal wart, right posterior anal wart) Estimated Blood Loss 20 Surgeon Maribeth Caballero MD Surgical Staff Operation Date: 11/18/24 10:00 <No data on this case meets the specified criteria>
--- NOTE | 2024-11-18 11:20 | ESDS_ITS ---
Planned Discharge Date 11/18/24 DS: Providers Provider Primary care physician: Art Conley MD Attending Provider on Admission: Maribeth Caballero MD Attending Provider on DC: Maribeth Caballero MD Discharging Provider: Maribeth Caballero MD Diagnosis Discharge Diagnosis (1) Anal condyloma: Status: Acute Problem List Completed Was Problem List Reviewed/Reconciled?: Yes Exam Vital Signs Temp Pulse Resp BP Pulse Ox 97.3 F 63 20 126/95 H 95 11/18/24 08:25 11/18/24 08:25 11/18/24 08:25 11/18/24 08:25 11/18/24 08:25 Discharge Plan Plan Patient Disposition: HOME (Self Care) Prescriptions/Referrals Prescriptions/Med Rec: New ibuprofen 800 mg tablet 800 mg PO Q6H PRN (Reason: pain) Qty: 30 0RF Rx Instructions: Take 1 tablet as needed every 6 hours for moderate to severe pain No Action ferrous sulfate 325 mg (65 mg iron) Tablet 325 mg PO QDAY imatinib 100 mg tablet 50 mg PO EVERYOTHERDAY docusate sodium 100 mg capsule 100 mg PO DAILY Patient Comments: TAKE ONE CAPSULE BY MOUTH EVERY DAY NEEDED FOR CONSTIPATION Referrals: Maribeth Caballero MD [Physician, General Surgery] Referral Note: You will receive a message to confirm a follow-up appointment with me in 2-4 weeks Art Conley([facility])MD [Primary Care Provider, Family Practice] Patient/Caregiver Discharge Instructions Other Discharge Activity Instructions:: You may take sitz baths as needed for pain, bleeding and swelling starting tomorrow 11/19 Avoid constipation and diarrhea If you develop difficulty urinating, fever, bleeding that does not stop with direct pressure and/or pain not controlled by medications please seek care in ER For any non-urgent concern please feel free to call the office at [phone] Print Language: Guatemalan Stand Alone Forms: Erica Award Info., Patient Portal Info Letter Discharge Order Discharge Orders: Discharge (Routine); Ordered 11/18/24 Ordered By: Maribeth Caballero Results Results: Laboratory Laboratory results: results reviewed PROCEDURES: Procedure Date 11/18/24 Procedures Examination under anesthesia, proctoscopy, excision and cauterization of anal warts
--- NOTE | 2024-11-18 11:20 | SUR.PHASEII ---
1120: Pt. AAOx4, vitals stable, breathing unlabored, no complaint of pain or nausea, dressing has scant amount of drainage, report received from Mihai DOCKERY and Hien FUCHS.
[2024-11-18] MEDS: fentaNYL CIT INJ 50 mCg/ML AMP 2ML IVP ×2 (11:37→11:53)
--- NOTE | 2024-11-18 12:25 | SUR.PHASEII ---
1225: Pt. AAOx4, vitals stable, breathing unlabored, no complaint of pain or nausea, dressing to rectum has scant amount of drainage, pt. tolerated sips of water well, pt. ambulated to wheelchair with steady gait and no assist, no complications. Gave discharge instructions to the pt. and his ride, both verbalized understanding and had no further questions. Pt. left with all personal belongings.
== END 2024-11-18 12:25 | disposition home or self-care (01) ==
PROVIDERS: PCP Family Medicine; Referring Provider Surgery; Visit Provider Surgery
PROC: (CPT 17110; principal; 2024-11-18 09:45)
DX: A63.0 Anogenital (venereal) warts (principal); K62.82 Dysplasia of anus
CPT/HCPCS: 17110; 46922; 36415; 80048; 85025; 85610; 85730; A4649; J2704; J3010; J3490

== ENCOUNTER 2024-11-30 09:32 | Outpatient (AMB) | payer MEDICAID, SELFPAY ==
[2024-11-30 09:45] VITALS: BP 136/73; PULSE 57; RESP 16; TEMP 36.4; O2SAT 95; BMI 26.2
--- NOTE | 2024-11-30 09:45 | PD.GSCLVISIT ---
Vital Signs - [facility] 11/30/24 09:45 Height 1.85 m Height Method Measured Weight 89.925 kg Weight Measurement Method Standing Scale BMI 26.2 BP 136/73 H Blood Pressure Source Automatic Cuff Blood Pressure Location Left Upper Arm Position Sitting Respiration 16 Pulse 57 L Pulse Source Monitor Temp 97.6 F Temp Source Temporal Artery Scan Pulse Oximetry (%) 95 Oxygen Delivery Method Room Air Med/Allergies Allergies & Medications Allergies No Known Allergies Allergy (Verified 11/30/24 09:46) Medication Reconciliation ferrous sulfate 325 mg (65 mg iron) tablet 325 mg PO QDAY 06/13/20 [History Confirmed 11/30/24] imatinib 100 mg tablet 50 mg PO EVERYOTHERDAY 04/08/24 [History Confirmed 11/30/24] docusate sodium 100 mg capsule 100 mg PO DAILY 11/16/24 [History Confirmed 11/30/24] ibuprofen 800 mg tablet 800 mg PO Q6H PRN pain #30 tabs 11/18/24 [Rx Confirmed 11/30/24] MA Intake Visit Data Collection New Patient or Established: Established Patient (seen at [facility] within 3 years) Seen by Clinical Staff ONLY (RN/MA): No Reason for Visit:: POST OP EUA/PROCTOSCOPY Pain Present Currently: No Pain Scale Used: Rodriguez-Victor/Numerical Experimental Technician Required: No PCP or OBGYN visit in last 3 months: Yes Hx Now: No Do You Feel Safe at Home: Yes Authorities Contacted: N/A Smoking Status Smoking Status: Current some day smoker Cessation Counseling Provided: SAM was advised that quitting smoking is the single most important factor to protect the health of themselves and their family. Discussed the benefits of quitting smoking with patient. Encouraged patient to quit smoking and provided Cessation assistance materials and resources. Tobacco Use: Cigarette Years smoked: 15 Are you interested in quitting?: No Would you like additional Smoking Cessation Counseling?: No Immunization / Flu Flu Vaccine in the Last 12 Months: No Flu Vaccine Exclusion Criteria: No Exclusion Criteria Past Medical History Past Medical History NEUROLOGIC: Negative Neurological Disorders or Seizures CARDIAC: Positive Hypertension; Negative Cardiac Disorders or Congestive Heart Failure RESPIRATORY: Negative Chronic Obstructive Pulmonary Disease (COPD) GASTROINTESTINAL: Positive Pancreatitis, Ulcer and Irritable Bowel; Negative Gastrointestinal Disorders or Hepatitis GENITOURINARY: Negative Genitourinary Disorders or Renal Disease REPRODUCTIVE: Positive Genital Herpes MUSCULOSKELETAL: Positive Degenerative Disk Disease ENDOCRINE: Negative Endocrine Disorders, Diabetes Mellitus Type 1 or Diabetes Mellitus Type 2 HEMATOLOGIC: Positive Blood Disorders (myeloid neoplasm), Anemia and Leukemia (Myeloid neoplasm) PSYCHO/SOCIAL: Positive Depression and Anxiety OTHER HISTORY: Positive Chemotherapy (currently taking chemo po for myeloid neoplasm); Negative Hospitalization, Autoimmune Disease, Shingles, Falls, Blood Transfusions, Blood Transfusion Reaction, Anesthesia Reactions, MRSA, Chicken Pox, Measles, Mumps or Cancer Family History FAMILY HISTORY: Positive Family Cancer (colon, liver) and Family Surgery; Negative Family Psychiatric Problems, Family Respiratory Disorders, Family Cardiac Disorders, Family Gastrointestinal Problems or Family Anesthesia Reaction Surgical History SURGICAL: Positive Abdominal Surgery; Negative Cardiac Surgery or Endocrine Surgery Social History SMOKING STATUS: Smoking status: Current some day smoker ALCOHOL: Alcohol Intake: Never HOUSING: Housing: House [facility] HPI Narrative HISTORY OF PRESENT ILLNESS I, Maribeth Caballero, have obtained verbal consent from the patient, to be recorded during this encounter which may include, but not limited to, medical history, examination, treatment plans, and relevant health information.? Patient was informed that recording will be read and reviewed by myself before inclusion in the medical chart. The patient is here for a follow-up of proctoscopy with excision of anal condyloma. He reports an initial episode of bleeding, which has since subsided. Bowel movements are accompanied by a pinkish-red discharge, not bright but slightly dark. Discomfort is experienced during bowel movements, particularly when the stool passes from the intestine into the rectum, but this is less severe than before. Overall pt is feeling well and can appreciate that there are no longer lesions in the anal canal ROS Review of Systems Systems Reviewed: All systems reviewed, normal except as documented Objective/Exam General General Appearance: alert, cooperative and well groomed Resp Respiratory exam: Absent respiratory distress Results Pathology of anal lesions noted: two lesions with high grade dysplasia Assessment & Plan Diagnosis / Problem List (1) Anal condyloma: Status: Acute Assessment & Plan: Risks, benefits, and alternatives of treatment were discussed. The importance of regular follow-ups was emphasized, considering the patient's higher risk due to myeloproliferative disease. The patient was reassured that high-grade dysplasia is not cancerous but closer to it, and regular monitoring can help in early detection and management. The patient was advised to avoid straining during bowel movements to prevent further discomfort and potential complications. Immediate medical attention is recommended if new lesions or significant changes are noticed before the next scheduled visit. Otherwise we will follow up at 3 month intervals. All questions were answered and pt is agreeable with this plan Office Procedures GNS Level of Care Nursing/Assessment Patient Status: Established Patient Nursing Assessment/Reassesment: Medication Reconciliation, Update PMH in EMR and Vital Signs Coordination of Care: Complex Care and Chronic Disease 1-5, Education Complex Pt/Fam, Consent,records obtained, informed consent, Results/Orders obtained and Staff clarify orders Established Patient Charge Established Patient Point Assignment: 95 Established Patient Point Charge: EP Level 3 (80-115) Patient Portal Questionaires Social History Living Situation History Housing: House Tobacco History Smoking Status: Current some day smoker Alcohol History Alcohol Intake: Never Domestic Abuse History Do You Feel Safe at Home: Yes Review of Systems Report any current symptoms Only answer those that you have currently: Past Medical History Past Medical History Have you ever been diagnosed with any of the following: Neurological Problems Seizures: No Cardiology Problems Congestive Heart Failure: No Hypertension: Yes Respiratory Problems Chronic Obstructive Pulmonary Disease (COPD): No Stomache/Intestinal Problems Hepatitis: No Pancreatitis: Yes Ulcer: Yes Irritable Bowel: Yes Genital/Urinary Problems Renal Disease: No Reproductive Problems Genital Herpes: Yes Musculoskeletal Problems Degenerative Disk Disease: Yes Endocrine Problems Diabetes Mellitus Type 1: No Diabetes Mellitus Type 2: No Blood Problems Anemia: Yes Leukemia: Yes (Myeloid neoplasm) Psychologic Problems Depression: Yes Anxiety: Yes Other Problems Hospitalization: No Autoimmune Disease: No Shingles: No Falls: No Blood Transfusions: No Blood Transfusion Reaction: No Anesthesia Reactions: No Chemotherapy: Yes (currently taking chemo po for myeloid neoplasm) MRSA: No Chicken Pox: No Measles: No Mumps: No Cancer: No
== END 2024-11-30 10:25 | disposition home or self-care (01) ==
LOC: HODSRG 09:32
PROVIDERS: PCP Nurse Practitioner Family; Referring Provider Nurse Practitioner Family; Supervising Provider Surgery; Visit Provider Surgery
DX: Z48.815 Encounter for surgical aftercare following surgery on the digestive system (principal); I10 Essential (primary) hypertension; F17.210 Nicotine dependence, cigarettes, uncomplicated; Z71.6 Tobacco abuse counseling
CPT/HCPCS: 99213; G0463

== ENCOUNTER 2025-01-06 13:23 | Outpatient (RCR) | payer MEDICAID, SELFPAY ==
--- NOTE | 2025-01-06 14:04 | CTCFLWUP_ITS ---
Patient: SAM GARCIA : 1990 Page 2 of 2 FOLLOW UP NOTE DATE OF SERVICE: 01/06/2025 NAME: SAM GARCIA ACCOUNT: [id number] : 1990 AGE: 34 INTERVAL HISTORY: Patient with eosinophilia with FLIPIL1-PDGFRA gene rearrangement . patient on imatinib and doing well . PREVIOUS NOTE: Sam Garcia is a 34-year-old ENG speaking male without any significant past medical history has been having nasal changes as well as scabs on the back of his calves as well as weight loss since September 2019. He was initially found to have his renal failure in November 2019. 12/08/2019: WBC 38.4, absolute eosinophil count 18,700 cells per deciliter, hemoglobin 10.8, MCV 95, platelets 158,000. 03/01/2020: WBC 34.9, absolute eosinophil count 16,500 cells per deciliter hemoglobin 10.9, platelet count 130,000. 06/13/2020: WBC 33.9, absolute eosinophil count 16,600 cells per deciliter, hemoglobin 9.8, platelets 104,000. 06/13/2020: Bone marrow biopsy and aspiration? 08/04/2020: WBC 84.7, absolute eosinophil count 22.4, absolute neutrophil count 39.6, hemoglobin 9.4, MCV 100, platelets 96,000. 08/10/2020: WBC 62.1, absolute eosinophil count is 19.1, hemoglobin is 9.9, platelets or 81,000. 08/12/2020: Patient started taking imatinib 100 mg p.o. daily. 08/17/2020: WBC 4.1, eosinophil count 0.1, hemoglobin 9.0, MCV 100, platelets 80,000. 08/23/2020: CT scan of the abdomen without contrast? 08/29/2020: CT scan of the chest with IV contrast? 08/31/2020: WBC 1.6, ANC 0.7, eosinophils 0, hemoglobin 9.9, MCV 106, platelets 79,000. 09/01/2020: Patient is advised to hold imatinib. 09/08/2020: WBC 2.5, ANC 1.7, hemoglobin 11.0, platelets 68.1. 09/15/2020: WBC 4.0, ANC 3.0, hemoglobin 12.0, platelets 162,000 09/21/2020: WBC 5.5, ANC 3.2, hemoglobin 13.6, platelets 158,000. 09/22/2020: Patient is started on imatinib 50 mg every other day. 09/29/2020: WBC 5.6, ANC 3.7, eosinophils 0.1, hemoglobin 15.1, platelets 173,000. 11/01/2020: WBC 4.3, ANC 2.6, hemoglobin 14.6, MCV 92, platelets 183,000. Eosinophils 0.1. 11/29/2020: FISH analysis with MPN probes? 12/01/2020: WBC 5.4, ANC 3.7, eosinophil count 0.3, hemoglobin 14.0, MCV 90, platelets 164,000. 02/06/2021: WBC 8.3, eosinophils 1%, hemoglobin 15.3, platelets 184,000. 05/16/2021: WBC 6.5, ANC 4.0, hemoglobin 15.6, MCV 94, platelets 206,000. 09/26/2021: WBC 8.3, ANC 6.2, hemoglobin 15.5, MCV 92, platelets 205,000. 01/29/2022: WBC 6.3, ANC 4.2, eosinophils 0.2, creatinine 0.8, calcium 10.4. 04/13/2022: Hemoglobin 16.9, MCV 93, WBC 6.3, ANC 3.5, absolute eosinophil count 0.2, platelets 215,000. 01/14/2023: WBC 5.7, ANC 3.1, eosinophil count 0.3, hemoglobin 15.2, MCV 90, platelets 179,000 06/18/2023: WBC 7.7, ANC 5.4, his son Christoph count 0.2, hemoglobin 14.5, MCV 92, platelets 158,000 01/23/2024: WBC 7.4, ANC 4.7, eosinophil count 0.3, hemoglobin 15.6, MCV 91, platelets 198,000, labs within normal limits. 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 Patient continues to take imatinib 50 mg p.o. every other day. Patient tolerating it well. CBC and CMP done on 01/23/2024 levels are within normal limits. Patient reports good appetite and energy levels. 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 INTERVAL HISTORY: PREVIOUS NOTE: Sam Garcia is a 34-year-old ENG speaking male without any significant past medical history has been having nasal changes as well as scabs on the back of his calves as well as weight loss since September 2019. He was initially found to have his renal failure in November 2019. 12/08/2019: WBC 38.4, absolute eosinophil count 18,700 cells per deciliter, hemoglobin 10.8, MCV 95, platelets 158,000. 03/01/2020: WBC 34.9, absolute eosinophil count 16,500 cells per deciliter hemoglobin 10.9, platelet count 130,000. 06/13/2020: WBC 33.9, absolute eosinophil count 16,600 cells per deciliter, hemoglobin 9.8, platelets 104,000. 06/13/2020: Bone marrow biopsy and aspiration? 08/04/2020: WBC 84.7, absolute eosinophil count 22.4, absolute neutrophil count 39.6, hemoglobin 9.4, MCV 100, platelets 96,000. 08/10/2020: WBC 62.1, absolute eosinophil count is 19.1, hemoglobin is 9.9, platelets or 81,000. 08/12/2020: Patient started taking imatinib 100 mg p.o. daily. 08/17/2020: WBC 4.1, eosinophil count 0.1, hemoglobin 9.0, MCV 100, platelets 80,000. 08/23/2020: CT scan of the abdomen without contrast? 08/29/2020: CT scan of the chest with IV contrast? 08/31/2020: WBC 1.6, ANC 0.7, eosinophils 0, hemoglobin 9.9, MCV 106, platelets 79,000. 09/01/2020: Patient is advised to hold imatinib. 09/08/2020: WBC 2.5, ANC 1.7, hemoglobin 11.0, platelets 68.1. 09/15/2020: WBC 4.0, ANC 3.0, hemoglobin 12.0, platelets 162,000 09/21/2020: WBC 5.5, ANC 3.2, hemoglobin 13.6, platelets 158,000. 09/22/2020: Patient is started on imatinib 50 mg every other day. 09/29/2020: WBC 5.6, ANC 3.7, eosinophils 0.1, hemoglobin 15.1, platelets 173,000. 11/01/2020: WBC 4.3, ANC 2.6, hemoglobin 14.6, MCV 92, platelets 183,000. Eosinophils 0.1. 11/29/2020: FISH analysis with MPN probes? 12/01/2020: WBC 5.4, ANC 3.7, eosinophil count 0.3, hemoglobin 14.0, MCV 90, platelets 164,000. 02/06/2021: WBC 8.3, eosinophils 1%, hemoglobin 15.3, platelets 184,000. 05/16/2021: WBC 6.5, ANC 4.0, hemoglobin 15.6, MCV 94, platelets 206,000. 09/26/2021: WBC 8.3, ANC 6.2, hemoglobin 15.5, MCV 92, platelets 205,000. 01/29/2022: WBC 6.3, ANC 4.2, eosinophils 0.2, creatinine 0.8, calcium 10.4. 04/13/2022: Hemoglobin 16.9, MCV 93, WBC 6.3, ANC 3.5, absolute eosinophil count 0.2, platelets 215,000. 01/14/2023: WBC 5.7, ANC 3.1, eosinophil count 0.3, hemoglobin 15.2, MCV 90, platelets 179,000 06/18/2023: WBC 7.7, ANC 5.4, his son Christoph count 0.2, hemoglobin 14.5, MCV 92, platelets 158,000 01/23/2024: WBC 7.4, ANC 4.7, eosinophil count 0.3, hemoglobin 15.6, MCV 91, platelets 198,000, labs within normal limits. 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 Unable to tolerate due to severe neutropenia. Currently on imatinib 50 mg p.o. every other day. History of drug abusing behavior. Patient is intermittently using cocaine, [place] tablets as well as marijuana. Homosexual orientation. DATE OF DIAGNOSIS: 06/13/2020 STAGE/TNM: TREATMENT HISTORY: Care?Plan Start?Date Cycle Day Intent HISTORY OF PRESENT ILLNESS: OTHER MEDICAL HISTORY/CONDITIONS: History of syphilis, received full treatment according to Mr. Garcia. FAMILY HISTORY: SOCIAL HISTORY: History of drug abusing behavior. Patient is intermittently using cocaine, [place] tablets as well as marijuana. Strength was in August 2023. Homosexual orientation. Not taking preexposure prophylaxis medications. MEDICATIONS: 1. CeleBREX - 200 mg 1 Capsule Twice a Day 2. ferrous sulfate - 325 mg (65 mg iron) 1 tab Daily 3. imatinib - 100 mg 0.5 tab Every other day 4. Surfak - 1 Daily 5. Zoloft - 25 mg 1 tab Daily Medications Last Reconciled by Kaya Garcia MD on 01/06/2025 ALLERGIES: No Known Drug Allergies REVIEW OF SYSTEMS: A complete 14-point review of systems was performed and is negative except as noted in interval history. PHYSICAL EXAMINATION: VITAL SIGNS: PAIN: 0 - No pain ECOG Performance Status: 0 - Asymptomatic and fully active GENERAL APPEARANCE: Appears well, in no apparent distress, appropriately interactive. HEENT: Normocephalic, no temporal wasting, normal conjunctiva, no scleral icterus, normal hearing, lips without lesions CARDIOVASCULAR: Normal heart sounds. PULMONARY: Normal respiratory effort, no respiratory distress or use of accessory muscles, speaking in full sentences, no tachypnea. EXTREMITIES: No pedal edema SKIN: Normal skin appearance. NEUROLOGIC: Alert and ORIENTED x4. PSHYCHIATRIC: Appropriate affect, mood normal, behavior normal, intact thought and speech. LABORATORY DATA: I have personally reviewed and interpreted each of the patient?s relevant lab tests, abnormal findings are below: Date 06/18/23 11/16/24 ??WHITE?BLOOD?COUNT?(Thou/mm3) 7.7 8.7 ??RED?BLOOD?COUNT?(Miln/mm3) 4.62 4.53 ??HEMOGLOBIN?(gm/dl) 14.5 14.3 ??HEMATOCRIT?(%) 42.4 42.0 ??PLATELET?COUNT?(Thou/mm3) 158 180 ??NEUTROPHILS?%,?AUTO?(%) 71 63 ??LYMPH?%,?AUTO?(%) 21 26 ??NEUTROPHILS,?AUTO?(Thou/mm3) 5.4 5.5 ??GLUCOSE,RANDOM?(mg/dL) 94 95 ??BLOOD?UREA?NITROGEN?(mg/dL) 12 9 ??CREATININE?(mg/dL) 0.80 0.90 ??SODIUM?(mmol/L) 136 145 ??POTASSIUM?(mmol/L) 4.4 3.9 ??CHLORIDE?(mmol/L) 104 110?H ??CrCl?(CandG)?(ml/min) 170.81 143.64 ??AST/SGOT?(Unit/L) 23 ? ??ALT/SGPT?(Unit/L) 16 ? ??ALKALINE?PHOSPHATASE?(Unit/L) 85 ? ??BILIRUBIN,?TOTAL?(mg/dL) 0.8 ? ??PROTEIN?TOTAL?(gm/dl) 7.0 ? ??ALBUMIN,?SERUM?(gm/dl) 4.3 ? ??GLOBULIN?(gm/dl) 2.7 ? ??ALBUMIN/GLOBULIN?RATIO 1.6 ? ??CALCIUM,?SERUM?(mg/dL) 9.4 9.5 ??CALCIUM?SERUM?(CORRECTED)?(mg/dL) 9.4 ? ASSESSMENT/PLAN: 1. 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 Unable to tolerate due to severe neutropenia. Currently on imatinib 50 mg p.o. every other day, tolerating dose. History of drug abusing behavior. Patient is intermittently using cocaine, [place] tablets as well as marijuana. Last time he used drugs was in August 2023. CT scan of the abdomen in the past showed hepatosplenomegaly. CT scan of the chest did not show any pulmonary lesions. CBC CMP within normal limits 01/23/2024. Continue imatinib 50 mg p.o. every other day. I will see him back in clinic in 4 months with CBC and CMP done prior to the visit. ORDERS: Order # Description [id number] Comprehensive Metabolic Panel - 12 + CBC with Auto Diff [id number] Follow Up 3 Months RETURN TO CLINIC: I reviewed the diagnosis, prognosis, and recommended treatment/procedure options with the patient (and/or their legal digital sales representative), including the potential benefits, risks, side effects and alternative therapies. We also discussed the option of no treatment and the possibility of clinical trial participation, if applicable. All questions were addressed, and they demonstrated understanding. They provided informed consent to proceed with the proposed plan of care. BILLING AND COMPLIANCE: I reviewed external records from providers outside my specialty as summarized above. I spent a total of 50 minutes on this patient?s care on the day of their visit excluding time spent related to any billed procedures. This time includes time spent with the patient as well as time spent documenting in the medical record, reviewing patients records and tests, obtaining history, placing orders, communicating with other healthcare professionals, counseling the patient, family or caregiver, and/or care coordination for the diagnoses above. Electronically Signed by: Mark Downing MD T: 2:01 PM CC: Adrien?Iraj?Tsering,? PCP: Beatrice Ruiz Referring: Beatrice Ruiz This document was completed utilizing speech recognition software. Grammatical errors, random word insertions, pronoun errors, and incomplete sentences are an occasional consequence of this system due to software limitations, ambient noise, and hardware issues. Any formal questions or concerns about the content, text or information contained within the body of this dictation should be directly addressed to the provider for clarification.
== END 2025-01-17 23:59 | disposition home or self-care (01) ==
LOC: SCTC 13:23
PROVIDERS: PCP Nurse Practitioner Family; Referring Provider Nurse Practitioner Family; Visit Provider Internal Medicine Hematology & Oncology
DX: D47.1 Chronic myeloproliferative disease (principal); D72.10 Eosinophilia, unspecified
CPT/HCPCS: 99212; G0463

== ENCOUNTER 2025-02-02 08:10 | Outpatient (CLI) | payer MEDICAID, SELFPAY ==
[2025-01-29 09:11] VITALS: BMI 27.0
[2025-02-01 13:29] LABS: Basophils # (Auto) 0.0 Thou/mm3 (0.0-0.2); Basophils % (Auto) 1 % (0-2.5); Eosinophils # (Auto) 0.3 Thou/mm3 (0.0-0.5); Eosinophils % (Auto) 6 % (0-10); Hematocrit 42.2 % (41.0-53.0); Hemoglobin 14.2 g/dL (13.5-16.0); Immature Granulocytes Auto 0.01 Thou/mm3 (0.00-0.00); Lymphocytes # (Auto) 1.7 Thou/mm3 (1.0-4.8); Lymphocytes % (Auto) 28 % (10-50); Mean Corpuscular HGB Conc 33.6 g/dl (31.0-37.0); Mean Corpuscular Hemoglobin 31.1 pg (25.0-35.0); Mean Corpuscular Volume 92 fL (80-100); Monocytes # (Auto) 0.3 Thou/mm3 (0.0-0.8); Monocytes % (Auto) 5 % (0-12); Neutrophils # (Auto) 3.6 Thou/mm3 (1.8-7.7); Neutrophils % (Auto) 60 % (37-80); Nucleated Red Blood Cell # 0.00 Thou/mm3 (0.00-0.00); Nucleated Red Blood Cell % 0 /100 WBC (0); Platelet Count 166 Thou/mm3 (140-440); RDW Standard Deviation 46.4 fL (35.1-43.9); Red Blood Count 4.57 Miln/mm3 (4.50-5.90); White Blood Count 5.9 Thou/mm3 (3.8-10.6)
[2025-02-01 13:34] LABS: INR 1.1 (0.9-1.3); Partial Thromboplastin Time 28.7 Seconds (22.0-36.0); Prothrombin Time 11.3 Seconds (9.0-12.2)
[2025-02-02] VITALS (10 sets, daily range): BP systolic 116–140; BP diastolic 49–90; PULSE 52–67; RESP 12–19; TEMP 36.2–36.6; O2SAT 93–99
--- NOTE | 2025-02-02 08:30 | XR_ITS ---
Examination: CT-guided percutaneous aspiration of left posterior superior iliac crest CT-guided percutaneous bone biopsy deep left posterior superior iliac crest Date and time of procedure: February 02, 2025, 0859 hours INDICATIONS: Diagnosis chronic myeloproliferative disease Informed consent provided. A timeout was completed verifying correct patient, procedure, site and positioning. Technique: Axial 3 mm sections were obtained for localization of the posterior superior iliac crest Appropriate area is marked. The patient's site was prepped and draped in sterile fashion Maximal sterile barrier technique utilized, including hand hygiene Local anesthesia was obtained with 1% lidocaine. Low dose protocols were performed. One or more of the following dose reduction techniques were used; automated exposure control, adjustment of the mA and/or KV according to patient size, use of iterative reconstruction technique. Utilizing CT fluoroscopic guidance 14-gauge bone biopsy needle placed in the left posterior superior iliac crest 10 cc marrow aspirate and 5 cm bone core obtained Patient appears in stable condition during this procedure. At completion of the procedure, the patient is in satisfactory condition. Estimated blood loss 2 cc Complete pathology report to follow. Impression: Successful CT-guided percutaneous bone marrow aspiration left posterior superior iliac crest Successful CT-guided percutaneous bone biopsy deep left posterior superior iliac crest
[2025-02-02 08:43] LABS: Flow Cytometry* See Sep Rpt
[2025-02-02] MEDS: SODIUM CHLORIDE 0.9% 500 ML 500 ML 20 ML IV (09:10)
[2025-02-02] MEDS: fentaNYL CIT INJ 50 mCg/ML AMP 2ML 100 MCG IVP (09:14)
--- NOTE | 2025-02-02 15:45 | PC.NURSE ---
0934 patient is awake, alert, breathing unlabored, s/p bone marrow biopsy and aspiration, dressing to lower back dry with no active bleeding, patient transferred to label maker for 1 hour recovery. 1038 patient is awake, alert, breathing unlabored, dressing to lower back had small amount of drainage, dressing changed prior to discharge, no active bleeding noted. patient able to tolerated 7 up with no nausea or vomiting, able to ambulate to bathoom and void, discharge instructions given to patient and mother, patient discharged home in wheelchair with all belongings.
== END 2025-02-02 10:38 | disposition home or self-care (01) ==
PROVIDERS: Radiology Diagnostic Radiology; PCP Family Medicine; Referring Provider Internal Medicine Hematology & Oncology; Visit Provider Internal Medicine Hematology & Oncology
DX: D47.1 Chronic myeloproliferative disease (principal)
CPT/HCPCS: 20220; 36415; 77012; 85025; 85610; 85730; J3010; J7999